=== PATIENT | male | born 1930 ===

== ENCOUNTER 2017-01-06 11:23 | Day surgery (SDC) | payer MEDICARE, BC ==
[~2017-01-06] VITALS: Ht 182.9 cm; Wt 76.8 kg
[2017-01-06] MEDS ORDERED: COREG 6.256.25 MG/TA PO (14:22)
[2017-01-06] MEDS ORDERED: ZYLOPRIM 100MG100 MG PO (14:22)
[2017-01-06] MEDS ORDERED: GLUCOPHAGE1000 MG PO (14:23)
[2017-01-06] MEDS ORDERED: GLUCOPHAGE500 MG/TAB PO (14:23)
[2017-01-06] MEDS ORDERED: ADALAT CC60 MG PO (14:24)
[2017-01-06] MEDS ORDERED: PRAVACHOL 40MG40 MG PO ×2 (14:24→14:25)
[2017-01-06] MEDS ORDERED: FLOMAX 0.40.4 MG/CAP PO (14:26)
[2017-01-06] MEDS ORDERED: MINIPRESS 1M1 MG/CAP PO (14:26)
[2017-01-06] MEDS ORDERED: DIABETA 5MG5 MG/TAB PO (14:27)
[2017-01-06 15:35] VITALS: BP 142/65; PULSE 68; TEMP 98
[2017-01-06 15:50] VITALS: BP 146/63; PULSE 69
[2017-01-06 16:05] VITALS: BP 137/60; PULSE 69
[2017-01-06 16:30] VITALS: BP 130/63; PULSE 71; TEMP 97.4
== END 2017-01-06 16:30 | disposition home or self-care (01) ==
LOC: SDCO 11:23 → EDBD 15:00 → SDCO 16:30
DX: N13.5 Crossing vessel and stricture of ureter without hydronephrosis (principal); R35.1 Nocturia; I25.10 Atherosclerotic heart disease of native coronary artery without angina pectoris; E11.22 Type 2 diabetes mellitus with diabetic chronic kidney disease; I12.9 Hypertensive chronic kidney disease with stage 1 through stage 4 chronic kidney disease, or unspecified chronic kidney disease; N18.9 Chronic kidney disease, unspecified; K21.9 Gastro-esophageal reflux disease without esophagitis; Z95.1 Presence of aortocoronary bypass graft; Z79.899 Other long term (current) drug therapy; Z79.84 Long term (current) use of oral hypoglycemic drugs
CPT/HCPCS: C1769; C1894; C2617; J0690; J2405; J2704; J3010; J7030; Q9967